=== PATIENT | female | born 1940 | race Caucasian/White ===

== ENCOUNTER 2016-04-22 20:11 | Inpatient (IN) | payer OTHER, BC ==
[~2016-04-22] VITALS: Ht 149.9 cm; Wt 52.9 kg
[~2016-04-22 20:11] MED LIST: ADVAIR 250/501 DISK IH; ALEVE220 MG PO; B-12 PO; BACTRIM,SEPT1 TABLET PO; BACTROBAN CREAM15 GM TP; CALCIUM 600 +1 EAC8 PO; CALCIUM PO; CYANOCOBALAM1000 MCG PO; Colace PO; Cortaid,Hytone 1% Cr TP; DAILY VITAMIN1 EAC8 PO; DuoNeb IH; FURO40I IV; FUROSEMIDE40 MG PO; GABAPENTIN400 MG PO; IBUPROFEN600 MG PO; K-Dur PO; Keppra PO; LEVETIRACETAM250 MG PO; Maalox, Mylanta PO; NIZORAL 2% CREA15 GM TP; NOVOLOG PE100 UNITS/ SC; Neurontin PO; Nitrostat,NitroQuick SL; POTASSIUM CHLO20 ME1 PO; PREDNISONE PO; PRINIVIL10 MG PO; Protonix PO; SPIRIVA1 INHALATI IH; SSD25GM TP; THEOPHYLLINE A200 M1 PO; TRICOR145 MG PO; Theo-Dur,Theocron PO; VITAMIN D10000 UNIT PO; VITAMIN D3; Zeasorb Antifungal T TP; oxyCODONE PO
[2016-04-22 21:13] LABS: BASOPHIL COUNT 0.1 K/uL (0-0.1); EOSINOPHIL (%) 5.4 % (0-5); EOSINOPHIL COUNT 0.3 K/uL (0-0.3); HEMATOCRIT 27.6 % (36.0-46.0); IMMATURE GRANULOCYTE (%) 0.4 % (0.0-0.7); IMMATURE GRANULOCYTE COUNT 0.2 K/uL; LYMPHOCYTE COUNT 1.1 K/uL (1.0-2.8); MCH 29.5 PG (29.0-34.0); MCHC 30.4 G/DL (30.0-36.0); MCV 96.8 FL (83-99); MONOCYTE (%) 10.4 % (3-12); MONOCYTE COUNT 0.5 K/uL (0-0.8); NEUTROPHIL (%) 60.4 % (45-76); RBC DIS.WIDTH-CV 13.3 % (11.8-14.6); RED BLOOD COUNT 2.85 M/uL (3.80-5.20)
[2016-04-22 21:17] LABS: MEAN PLAT.VOLUME 9.7 uM^3 (9.5-12.4); PLATELET COUNT 494 K/uL (156-360)
[2016-04-22 21:21] LABS: CHLORIDE 98 mEq/L (99-109); POTASSIUM 5.8 mEq/L (3.7-5.4)
[2016-04-22 21:24] LABS: GLUCOSE 121 mg/dL (70-99)
[2016-04-22 21:25] LABS: ANION GAP 9 MEQ/L (2-14)
[2016-04-22 21:26] LABS: TOTAL BILIRUBIN 0.2 mg/dL (0.0-1.0)
[2016-04-22 21:27] LABS: ALKALINE PHOSPHATASE 60 IU/L (3-129)
[2016-04-22 21:28] LABS: GFR ESTIMATE (CALCULATED) 14 mL/min/; SODIUM 137 mEq/L (136-147)
[2016-04-22 21:33] LABS: UREA NITROGEN (BUN) 39 mg/dL (9-23)
[2016-04-22 21:39] LABS: TROP-I INTERPRETATION NEGATIVE; TROPONIN-I 0.04 ng/mL (0.0-0.30)
[2016-04-23 00:49] LABS: ADD MIUA? YES; BILIRUBIN NEGATIVE; BLOOD MODERATE; COLOR YELLOW ((YELLOW)); GLUCOSE (STRIP) NEGATIVE; KETONES NEGATIVE; LEUKOCYTES NEGATIVE; NITRITE NEGATIVE; PH, URINE 6.5 (5-8); PROTEIN (STRIP) 30; SPECIFIC GRAVITY 1.019 (1.000-1.030); UROBILINOGEN 0.2 MG/DL (0.2-1.0)
[2016-04-23 01:02] LABS: BACTERIA 1+; CASTS NONE SEEN /LPF; EPITHELIAL CELLS 2+; MUCUS NONE SEEN; RED BLOOD CELLS 0-5 /HPF (0-5); UCUL ADDED? NO; WHITE BLOOD CELLS 0-5 /HPF (0-5)
[2016-04-23 01:03] LABS: CRYSTALS PRESENT
[2016-04-23 01:04] LABS: CALCIUM OXALATE CRYSTALS RARE
[2016-04-23] MEDS ORDERED: TRAMADOL HCL50 MG PO (02:43)
[2016-04-23] MEDS ORDERED: DUONEB 2.5-0.5 M3 ML AEROSOL (02:46)
[2016-04-23 04:38] VITALS: BP 115/52
[2016-04-23 07:47] LABS: HEMATOCRIT 25.4 % (36.0-46.0); MCH 29.5 PG (29.0-34.0); MCHC 30.7 G/DL (30.0-36.0); MCV 96.2 FL (83-99); PLATELET COUNT 441 K/uL (156-360); RBC DIS.WIDTH-CV 13.8 % (11.8-14.6); RBC DIS.WIDTH-SD 48.4 % (39-53); RED BLOOD COUNT 2.64 M/uL (3.80-5.20); WHITE BLOOD COUNT 4.9 K/uL (4.1-10.2)
[2016-04-23 08:12] LABS: ALKALINE PHOSPHATASE 56 IU/L (3-129); ANION GAP 7 MEQ/L (2-14); CHLORIDE 100 MEQ/L (99-109); GLUCOSE 91 mg/dL (70-99); POTASSIUM 5.8 MEQ/L (3.7-5.4); SAMPLE HEMOLYSIS CHECK 0; SAMPLE ICTERIC CHECK 0; SAMPLE LIPEMIA CHECK 0; SODIUM 137 MEQ/L (136-147); UREA NITROGEN (BUN) 34 mg/dL (9-23)
[2016-04-23 08:15] LABS: GFR ESTIMATE (CALCULATED) 20 mL/min/; TOTAL BILIRUBIN 0.3 MG/DL (0.0-1.0)
[2016-04-23 08:46] VITALS: BP 128/55
[2016-04-23 12:13] VITALS: BP 139/65
[2016-04-23 16:10] VITALS: BP 137/65
[2016-04-23 16:12] LABS: ANION GAP 9 MEQ/L (2-14); CHLORIDE 100 MEQ/L (99-109); POTASSIUM 5.9 MEQ/L (3.7-5.4); SAMPLE HEMOLYSIS CHECK 2; SAMPLE ICTERIC CHECK 0; SAMPLE LIPEMIA CHECK 0; SODIUM 136 MEQ/L (136-147)
[2016-04-23 16:17] LABS: GFR ESTIMATE (CALCULATED) 24 mL/min/; GLUCOSE 124 mg/dL (70-99); UREA NITROGEN (BUN) 31 mg/dL (9-23)
[2016-04-23 18:18] VITALS: BP 120/60
[2016-04-23 20:25] VITALS: BP 131/61
[2016-04-24] VITALS: BP 128/61
[2016-04-24 04:27] VITALS: BP 143/73
[2016-04-24 06:13] LABS: BASOPHIL COUNT 0.1 K/uL (0-0.1); EOSINOPHIL (%) 4.7 % (0-5); EOSINOPHIL COUNT 0.2 K/uL (0-0.3); HEMATOCRIT 26.5 % (36.0-46.0); IMMATURE GRANULOCYTE (%) 0.2 % (0.0-0.7); LYMPHOCYTE COUNT 0.9 K/uL (1.0-2.8); MCHC 30.6 G/DL (30.0-36.0); MCV 98.1 FL (83-99); MEAN PLAT.VOLUME 10.1 uM^3 (9.5-12.4); MONOCYTE (%) 10.6 % (3-12); MONOCYTE COUNT 0.5 K/uL (0-0.8); NEUTROPHIL (%) 61.5 % (45-76); NEUTROPHIL COUNT 2.6 K/uL (1.8-6.4); PLATELET COUNT 477 K/uL (156-360); RBC DIS.WIDTH-CV 13.9 % (11.8-14.6); RBC DIS.WIDTH-SD 49.6 % (39-53); WHITE BLOOD COUNT 4.3 K/uL (4.1-10.2)
[2016-04-24 06:42] LABS: ANION GAP 9 MEQ/L (2-14); CHLORIDE 101 MEQ/L (99-109); GFR ESTIMATE (CALCULATED) 29 mL/min/; IRON 34 MCG/DL (35-150); SAMPLE HEMOLYSIS CHECK 0; SAMPLE ICTERIC CHECK 0; SAMPLE LIPEMIA CHECK 0; SODIUM 140 MEQ/L (136-147); UREA NITROGEN (BUN) 23 mg/dL (9-23)
[2016-04-24 06:47] LABS: GLUCOSE 86 mg/dL (70-99)
[2016-04-24 07:17] LABS: URIC ACID 7.4 mg/dL (3.1-9.2)
[2016-04-24 07:23] VITALS: BP 132/68
[2016-04-24 15:23] VITALS: BP 138/63
[2016-04-24 23:24] VITALS: BP 144/75
[2016-04-25 07:46] VITALS: BP 170/82
[2016-04-25 09:29] LABS: HEMATOCRIT 27.7 % (36.0-46.0); MCH 29.6 PG (29.0-34.0); MCHC 30.7 G/DL (30.0-36.0); MCV 96.5 FL (83-99); MEAN PLAT.VOLUME 9.9 uM^3 (9.5-12.4); PLATELET COUNT 439 K/uL (156-360); RBC DIS.WIDTH-CV 13.8 % (11.8-14.6); RBC DIS.WIDTH-SD 48.1 % (39-53); RED BLOOD COUNT 2.87 M/uL (3.80-5.20); WHITE BLOOD COUNT 3.9 K/uL (4.1-10.2)
[2016-04-25 09:59] LABS: ANION GAP 12 MEQ/L (2-14); CHLORIDE 101 MEQ/L (99-109); GFR ESTIMATE (CALCULATED) 39 mL/min/; GLUCOSE 82 mg/dL (70-99); POTASSIUM 3.7 MEQ/L (3.7-5.4); SAMPLE HEMOLYSIS CHECK 0; SAMPLE ICTERIC CHECK 0; SAMPLE LIPEMIA CHECK 0; SODIUM 144 MEQ/L (136-147); UREA NITROGEN (BUN) 18 mg/dL (9-23)
[2016-04-25 11:45] VITALS: BP 120/60
[2016-04-25 15:35] VITALS: BP 127/60
[2016-04-26 00:01] VITALS: BP 148/68
[2016-04-26 06:23] LABS: ANION GAP 16 MEQ/L (2-14); CHLORIDE 99 MEQ/L (99-109); GFR ESTIMATE (CALCULATED) 42 mL/min/; GLUCOSE 89 mg/dL (70-99); SAMPLE HEMOLYSIS CHECK 0; SAMPLE ICTERIC CHECK 0; SAMPLE LIPEMIA CHECK 0; SODIUM 145 MEQ/L (136-147); UREA NITROGEN (BUN) 16 mg/dL (9-23)
[2016-04-26 08:06] VITALS: BP 131/63
[2016-04-26 16:05] VITALS: BP 154/70
[2016-04-27 08:09] VITALS: BP 136/62
[2016-04-27 08:15] LABS: ANION GAP 17 MEQ/L (2-14); CHLORIDE 101 MEQ/L (99-109); GFR ESTIMATE (CALCULATED) 46 mL/min/; GLUCOSE 93 mg/dL (70-99); SAMPLE HEMOLYSIS CHECK 0; SAMPLE ICTERIC CHECK 0; SAMPLE LIPEMIA CHECK 0; SODIUM 145 MEQ/L (136-147); UREA NITROGEN (BUN) 22 mg/dL (9-23)
[2016-04-27 08:18] LABS: POTASSIUM 3.8 MEQ/L (3.7-5.4)
[2016-04-27] MEDS ORDERED: ACIDOPHILUS1 EAC4 PO (13:24)
[2016-04-27] MEDS ORDERED: MILK OF MAGN PO (13:28)
[2016-04-27] MEDS ORDERED: DULCOLAX10 MG PR (13:30)
[2016-04-27] MEDS ORDERED: FLEET ENEMA-AD118 ML PR (13:31)
[2016-04-27] MEDS ORDERED: MOTRIN600 MG PO (13:32)
[2016-04-27 16:22] VITALS: BP 153/67
[2016-04-27 20:05] VITALS: BP 140/63
[2016-04-27 23:29] VITALS: BP 155/70
[2016-04-28 06:45] LABS: ANION GAP 6 MEQ/L (2-14); CHLORIDE 100 MEQ/L (99-109); GFR ESTIMATE (CALCULATED) 46 mL/min/; GLUCOSE 93 mg/dL (70-99); POTASSIUM 3.6 MEQ/L (3.7-5.4); SAMPLE HEMOLYSIS CHECK 0; SAMPLE ICTERIC CHECK 0; SAMPLE LIPEMIA CHECK 0; SODIUM 139 MEQ/L (136-147); UREA NITROGEN (BUN) 23 mg/dL (9-23)
[2016-04-28 08:20] VITALS: BP 154/67
[2016-04-28 11:01] LABS: MCH 29.2 PG (29.0-34.0); MCHC 30.3 G/DL (30.0-36.0); MCV 96.2 FL (83-99); MEAN PLAT.VOLUME 10.1 uM^3 (9.5-12.4); PLATELET COUNT 387 K/uL (156-360); RBC DIS.WIDTH-CV 14.6 % (11.8-14.6); RBC DIS.WIDTH-SD 50.1 % (39-53); RED BLOOD COUNT 3.12 M/uL (3.80-5.20); WHITE BLOOD COUNT 4.8 K/uL (4.1-10.2)
[2016-04-28 11:35] LABS: ANION GAP 9 MEQ/L (2-14); CHLORIDE 102 MEQ/L (99-109); POTASSIUM 3.7 MEQ/L (3.7-5.4); SAMPLE HEMOLYSIS CHECK 0; SAMPLE ICTERIC CHECK 0; SAMPLE LIPEMIA CHECK 0; SODIUM 142 MEQ/L (136-147)
[2016-04-28 11:40] LABS: GFR ESTIMATE (CALCULATED) 46 mL/min/; GLUCOSE 94 mg/dL (70-99); UREA NITROGEN (BUN) 23 mg/dL (9-23)
[2016-04-28 17:17] VITALS: BP 142/60
[2016-04-29] VITALS: BP 140/65
[2016-04-29 15:21] VITALS: BP 158/72
[2016-04-29 23:15] VITALS: BP 156/70
[2016-04-30 06:44] LABS: ANION GAP 12 MEQ/L (2-14); CHLORIDE 100 MEQ/L (99-109); GFR ESTIMATE (CALCULATED) 46 mL/min/; GLUCOSE 91 mg/dL (70-99); POTASSIUM 3.2 MEQ/L (3.7-5.4); SAMPLE HEMOLYSIS CHECK 0; SAMPLE ICTERIC CHECK 0; SAMPLE LIPEMIA CHECK 0; SODIUM 142 MEQ/L (136-147); UREA NITROGEN (BUN) 23 mg/dL (9-23)
[2016-04-30 09:33] VITALS: BP 146/83
[2016-04-30 15:54] VITALS: BP 158/65
[2016-05-01 00:39] VITALS: BP 122/65
[2016-05-01 06:01] LABS: HEMATOCRIT 32.4 % (36.0-46.0); MCH 29.9 PG (29.0-34.0); MCHC 31.2 G/DL (30.0-36.0); MCV 95.9 FL (83-99); PLATELET COUNT 339 K/uL (156-360); RBC DIS.WIDTH-SD 51.8 % (39-53); RED BLOOD COUNT 3.38 M/uL (3.80-5.20)
[2016-05-01 06:37] LABS: ANION GAP 9 MEQ/L (2-14); CHLORIDE 99 MEQ/L (99-109); GFR ESTIMATE (CALCULATED) 51 mL/min/; GLUCOSE 89 mg/dL (70-99); POTASSIUM 3.8 MEQ/L (3.7-5.4); SAMPLE HEMOLYSIS CHECK 1; SAMPLE ICTERIC CHECK 0; SAMPLE LIPEMIA CHECK 0; SODIUM 138 MEQ/L (136-147); UREA NITROGEN (BUN) 22 mg/dL (9-23)
[2016-05-01 08:33] VITALS: BP 145/66
[2016-05-01 16:52] VITALS: BP 154/66
[2016-05-01 23:43] VITALS: BP 110/58
[2016-05-02 06:56] VITALS: BP 140/61
[2016-05-02 11:34] VITALS: BP 138/66
[2016-05-02 12:03] VITALS: BP 138/74
[2016-05-02] MEDS ORDERED: DOXYCYCLINE HY100 M3 PO (13:27)
== END 2016-05-02 16:10 | DRG 682 ==
LOC: EME → EDBD 20:11 → EME 20:11 → EDOF 04-23 02:32 → 5WEST 04-23 04:24 → 3EAST 04-23 10:12 → 5WEST 04-23 10:12 → 3EAST 04-23 17:34
PROVIDERS: Emergency Medicine; Internal Medicine; Internal Medicine Nephrology; Physician Assistant
DX: N17.9 Acute kidney failure, unspecified (principal); J96.21 Acute and chronic respiratory failure with hypoxia; G93.40 Encephalopathy, unspecified; L89.893 Pressure ulcer of other site, stage 3; J96.10 Chronic respiratory failure, unspecified whether with hypoxia or hypercapnia; L03.115 Cellulitis of right lower limb; N18.3 Chronic kidney disease, stage 3 (moderate); Z99.81 Dependence on supplemental oxygen; J44.9 Chronic obstructive pulmonary disease, unspecified; E87.5 Hyperkalemia; L98.499 Non-pressure chronic ulcer of skin of other sites with unspecified severity; D64.9 Anemia, unspecified; Z86.74 Personal history of sudden cardiac arrest; E78.5 Hyperlipidemia, unspecified; L40.9 Psoriasis, unspecified; G40.909 Epilepsy, unspecified, not intractable, without status epilepticus; E66.9 Obesity, unspecified; I87.2 Venous insufficiency (chronic) (peripheral); K43.9 Ventral hernia without obstruction or gangrene; N26.1 Atrophy of kidney (terminal); B95.61 Methicillin susceptible Staphylococcus aureus infection as the cause of diseases classified elsewhere; I25.2 Old myocardial infarction; Z68.34 Body mass index [BMI] 34.0-34.9, adult
CPT/HCPCS: 70450; 71010; 76770; 80048; 80048 91; 80053; 80069; 81003; 82272; 82570; 82607; 83540; 83605; 83735; 84156; 84466; 84484; 84550; 85025; 85027; 87040; 87070; 87075; 87205; 93926; 94640; 94640 76; 94760; 94799; 99202; 99281; 99284; J1644; J1756; J2405; J7030; J7050

== ENCOUNTER 2016-08-15 07:38 | Inpatient (IN) | payer OTHER, BC ==
[~2016-08-15] VITALS: Ht 162.6 cm; Wt 104.7 kg
[~2016-08-15 07:38] MED LIST changes: +ACIDOPHILUS1 EAC4 PO; +DOXYCYCLINE HY100 M3 PO; +DULCOLAX10 MG PR; +DUONEB 2.5-0.5 M3 ML AEROSOL; +FLEET ENEMA-AD118 ML PR; +MILK OF MAGN PO; +MOTRIN600 MG PO; +TRAMADOL HCL50 MG PO
[2016-08-15 08:20] LABS: EOSINOPHIL (%) 0 % (0-5); HEMATOCRIT 35.8 % (36.0-46.0); IMMATURE GRANULOCYTE (%) 0.5 % (0.0-0.7); IMMATURE GRANULOCYTE COUNT 0.1 K/uL; INSTRUMENT ABS NEUTROPHIL CT 13.3 K/uL; MCH 30.9 PG (29.0-34.0); MCV 99.7 FL (83-99); MEAN PLAT.VOLUME 11.4 uM^3 (9.5-12.4); MONOCYTE (%) 5.3 % (3-12); MONOCYTE COUNT 0.8 K/uL (0-0.8); NEUTROPHIL (%) 87.6 % (45-76); NEUTROPHIL COUNT 13.3 K/uL (1.8-6.4); PLATELET COUNT 428 K/uL (156-360); RBC DIS.WIDTH-CV 12.2 % (11.8-14.6); RED BLOOD COUNT 3.59 M/uL (3.80-5.20); WHITE BLOOD COUNT 15.2 K/uL (4.1-10.2)
[2016-08-15 08:28] LABS: CHLORIDE 100 mEq/L (99-109); POTASSIUM 3.9 mEq/L (3.7-5.4); SODIUM 140 mEq/L (136-147)
[2016-08-15 08:30] LABS: GLUCOSE 197 mg/dL (70-99)
[2016-08-15 08:31] LABS: ANION GAP 21 MEQ/L (2-14)
[2016-08-15 08:32] LABS: TOTAL BILIRUBIN 0.9 mg/dL (0.0-1.0)
[2016-08-15 08:33] LABS: ALKALINE PHOSPHATASE 92 IU/L (3-129)
[2016-08-15 08:34] LABS: GFR ESTIMATE (CALCULATED) 17 mL/min/
[2016-08-15 08:35] LABS: UREA NITROGEN (BUN) 53 mg/dL (9-23)
[2016-08-15] MEDS ORDERED: THEOPHYLLINE400 MG PO ×2 (09:33→11:20)
[2016-08-15] MEDS ORDERED: DAILY VALUE1 EACH PO (09:34)
[2016-08-15] MEDS ORDERED: B-121000 MC2 PO (09:34)
[2016-08-15] MEDS ORDERED: CALCIUM 500 +1 EAC4 PO (09:35)
[2016-08-15] MEDS ORDERED: KENALOG,ARISTOC15 G2 TP (09:36)
[2016-08-15] MEDS ORDERED: ERGOCALCIF50000 UNIT PO (09:36)
[2016-08-15] MEDS ORDERED: VITAMIN B12 100MCG PO (09:53)
[2016-08-15 09:55] LABS: BASE EXCESS -12.9 mEq/L (-3 to +3); BICARBONATE 18.2 mEq/L (22-26); CARBOXY HGB 2.1 % (0-5); PO2 71 mm Hg (80-100)
[2016-08-15 09:56] LABS: COMMENTS - BLOOD GASES +C; DEVICE NC; O2 FLOW 3 L/MIN; PCO2 72 mm Hg (35-45); SITE LR +A; TOTAL RESP RATE 28 resp/min; pH 7.01 (7.35-7.45)
[2016-08-15] MEDS ORDERED: THEO-24400 MG PO (11:17)
[2016-08-15 12:34] LABS: BASE EXCESS -13.3 mEq/L (-3 to +3); BICARBONATE 14.6 mEq/L (22-26); CARBOXY HGB 2.3 % (0-5); METHEMOGLOBIN 1.4 % (0-1.5); PCO2 43 mm Hg (35-45); PO2 156 mm Hg (80-100); pH 7.14 (7.35-7.45)
[2016-08-15 13:53] LABS: BASE EXCESS -10.2 mEq/L (-3 to +3); BICARBONATE 16.3 mEq/L (22-26); CARBOXY HGB 2.8 % (0-5); METHEMOGLOBIN 1.5 % (0-1.5); PCO2 38 mm Hg (35-45); PO2 101 mm Hg (80-100); pH 7.24 (7.35-7.45)
[2016-08-15 15:03] LABS: ANION GAP 12 MEQ/L (2-14); CHLORIDE 113 MEQ/L (99-109); POTASSIUM 3.6 MEQ/L (3.7-5.4); SAMPLE HEMOLYSIS CHECK 0; SAMPLE ICTERIC CHECK 0; SAMPLE LIPEMIA CHECK 0; SODIUM 143 MEQ/L (136-147)
[2016-08-15 15:13] LABS: ALKALINE PHOSPHATASE 43 IU/L (3-129); GFR ESTIMATE (CALCULATED) 31 mL/min/; UREA NITROGEN (BUN) 36 mg/dL (9-23)
[2016-08-15 15:14] LABS: GLUCOSE 102 mg/dL (70-99)
[2016-08-15 15:21] LABS: ABS NEUTROPHIL COUNT 3.2; ANISOCYTOSIS 1+; ATYPICAL LYMPHOCYTE 0.9 %; BAND NEUTROPHILS 43.2 % (0-8.0); BASOPHILS 1.8 %; EOSINOPHIL ABS CT 0; HEMATOCRIT 32.1 % (36.0-46.0); INSTRUMENT ABS NEUTROPHIL CT 3.1 K/uL; LYMPHOCYTES 7.2 % (15.0-45.0); MCH 30.3 PG (29.0-34.0); MCHC 31.8 G/DL (30.0-36.0); MEAN PLAT.VOLUME 11.3 uM^3 (9.5-12.4); MICROCYTOSIS 1+; NUCLEATED RBC'S 0.9; PLAT.SUFFICIENCY ADEQUATE; POIKILOCYTOSIS 1+; RBC DIS.WIDTH-CV 14.2 % (11.8-14.6); RBC DIS.WIDTH-SD 49.4 % (39-53); RED BLOOD COUNT 3.37 M/uL (3.80-5.20); SEG.NEUTROPHILS 44.2 % (46.0-76.0); SMUDGE CELLS 11.7
[2016-08-15 15:25] LABS: MCV 95.3 FL (83-99); PLATELET COUNT 193 K/uL (156-360); WHITE BLOOD COUNT 3.7 K/uL (4.1-10.2)
[2016-08-15 16:30] LABS: BASE EXCESS -11.1 mEq/L (-3 to +3); BICARBONATE 16.8 mEq/L (22-26); CARBOXY HGB 2.3 % (0-5); METHEMOGLOBIN 1.3 % (0-1.5)
[2016-08-15 16:31] LABS: PCO2 45 mm Hg (35-45); PO2 233 mm Hg (80-100); pH 7.18 (7.35-7.45)
[2016-08-15 18:00] VITALS: BP 95/46
[2016-08-15 18:28] LABS: HEMATOCRIT 39.2 % (36.0-46.0); MCH 30.9 PG (29.0-34.0); MCHC 31.9 G/DL (30.0-36.0); MCV 96.8 FL (83-99); MEAN PLAT.VOLUME 11.9 uM^3 (9.5-12.4); PLATELET COUNT 195 K/uL (156-360); RBC DIS.WIDTH-CV 14.7 % (11.8-14.6); WHITE BLOOD COUNT 3.8 K/uL (4.1-10.2)
[2016-08-15 18:29] LABS: RED BLOOD COUNT 4.05 M/uL (3.80-5.20)
[2016-08-15 18:44] LABS: TROP-I INTERPRETATION NEGATIVE; TROPONIN-I 0.12 ng/mL (0.0-0.30)
[2016-08-15 18:59] LABS: METH RESISTANT S AUREUS PCR NEGATIVE (NEGATIVE)
[2016-08-15 19:01] LABS: ANION GAP 14 MEQ/L (2-14); CHLORIDE 112 MEQ/L (99-109); GFR ESTIMATE (CALCULATED) 29 mL/min/; GLUCOSE 110 mg/dL (70-99); POTASSIUM 3.7 MEQ/L (3.7-5.4); SAMPLE HEMOLYSIS CHECK 0; SAMPLE ICTERIC CHECK 0; SAMPLE LIPEMIA CHECK 0; SODIUM 140 MEQ/L (136-147); UREA NITROGEN (BUN) 36 mg/dL (9-23)
[2016-08-15 19:08] LABS: PROBE CHECK PASS; SPECIMEN PROCESSING CONTROL PASS
[2016-08-15 20:51] LABS: BASE EXCESS -6.9 mEq/L (-3 to +3); BICARBONATE 18.5 mEq/L (22-26); CARBOXY HGB 3.1 % (0-5); COMMENTS - BLOOD GASES C+; DEVICE 840 VENT; FI02 40 %; MECHANICAL RATE 18 resp/min; METHEMOGLOBIN 1.5 % (0-1.5); MODE AC; PCO2 36 mm Hg (35-45); PO2 69 mm Hg (80-100); SITE ALINE; TOTAL RESP RATE 18 resp/min; pH 7.32 (7.35-7.45)
[2016-08-15 20:52] LABS: PEEP 5 CM/H20; TIDAL VOLUME 500 ML
[2016-08-15 21:00] VITALS: BP 103/68
[2016-08-15 22:00] VITALS: BP 80/53
[2016-08-15 23:00] VITALS: BP 69/52
[2016-08-16] VITALS (16 sets, daily range): BP systolic 82–130; BP diastolic 41–68
[2016-08-16 00:51] LABS: SODIUM 142 mEq/L (136-147)
[2016-08-16 00:53] LABS: GLUCOSE 119 mg/dL (70-99)
[2016-08-16 00:55] LABS: ANION GAP 12 MEQ/L (2-14)
[2016-08-16 00:57] LABS: GFR ESTIMATE (CALCULATED) 31 mL/min/
[2016-08-16 00:58] LABS: UREA NITROGEN (BUN) 37 mg/dL (9-23)
[2016-08-16 00:59] LABS: INTER. NORMALIZED RATIO 1.9; PROTHROMBIN TIME 19.6 (9.2-11.2); PTT 44.1 (25-32)
[2016-08-16 01:03] LABS: CHLORIDE 118 mEq/L (99-109); TOTAL BILIRUBIN 2.7 mg/dL (0.0-1.0)
[2016-08-16 01:04] LABS: ALKALINE PHOSPHATASE 32 IU/L (3-129)
[2016-08-16 01:35] LABS: ADD MIUA? YES; BILIRUBIN NEGATIVE; BLOOD MODERATE; COLOR YELLOW ((YELLOW)); GLUCOSE (STRIP) NEGATIVE; KETONES NEGATIVE; LEUKOCYTES NEGATIVE; NITRITE NEGATIVE; PROTEIN (STRIP) NEGATIVE; SPECIFIC GRAVITY 1.008 (1.000-1.030); UROBILINOGEN 0.2 MG/DL (0.2-1.0)
[2016-08-16 01:40] LABS: BACTERIA RARE /HPF; EPITHELIAL CELLS RARE /HPF; HYALINE CASTS 15-20 /LPF; MUCUS TRACE /LPF; RED BLOOD CELLS 20-30 /HPF (0-5); UCUL ADDED? NO; WHITE BLOOD CELLS 0-5 /HPF (0-5)
[2016-08-16 01:58] LABS: ABS NEUTROPHIL COUNT 2.5; ANISOCYTOSIS 1+; BASOPHILS 1.8 %; BURR CELLS 1+; EOSINOPHIL ABS CT 0; HEMATOCRIT 34.7 % (36.0-46.0); INSTRUMENT ABS NEUTROPHIL CT 2.3 K/uL; LYMPHOCYTES 13.9 % (15.0-45.0); MACROCYTES 1+; MCH 30.4 PG (29.0-34.0); MCHC 33.4 G/DL (30.0-36.0); MEAN PLAT.VOLUME 12.4 uM^3 (9.5-12.4); NRBC (%) 0.6 /100 WBC (0-0); NUCLEATED RBC'S 0.9; OVALOCYTES 1+; PLAT.SUFFICIENCY ADEQUATE; PLATELET COUNT 203 K/uL (156-360); POIKILOCYTOSIS 1+; RBC DIS.WIDTH-CV 15.6 % (11.8-14.6); RBC DIS.WIDTH-SD 51.7 % (39-53); RED BLOOD COUNT 3.82 M/uL (3.80-5.20); SEG.NEUTROPHILS 59.3 % (46.0-76.0); WHITE BLOOD COUNT 3.4 K/uL (4.1-10.2)
[2016-08-16 01:59] LABS: MCV 90.8 FL (83-99)
[2016-08-16 06:44] LABS: HEMATOCRIT 29.5 % (36.0-46.0); MCH 30.6 PG (29.0-34.0); MCHC 32.5 G/DL (30.0-36.0); MCV 93.9 FL (83-99); NRBC (%) 0.4 /100 WBC (0-0); PLATELET COUNT 169 K/uL (156-360); RBC DIS.WIDTH-CV 16.7 % (11.8-14.6); RBC DIS.WIDTH-SD 57.7 % (39-53); RED BLOOD COUNT 3.14 M/uL (3.80-5.20)
[2016-08-16 06:55] LABS: TROP-I INTERPRETATION NEGATIVE; TROPONIN-I 0.13 ng/mL (0.0-0.30)
[2016-08-16 07:16] LABS: ANION GAP 15 MEQ/L (2-14); CHLORIDE 116 MEQ/L (99-109); GFR ESTIMATE (CALCULATED) 26 mL/min/; POTASSIUM 4.6 MEQ/L (3.7-5.4); SAMPLE HEMOLYSIS CHECK 0; SAMPLE ICTERIC CHECK 0; SAMPLE LIPEMIA CHECK 0; SODIUM 144 MEQ/L (136-147); UREA NITROGEN (BUN) 34 mg/dL (9-23); WHITE BLOOD COUNT 5.2 K/uL (4.1-10.2)
[2016-08-16 07:17] LABS: GLUCOSE 69 mg/dL (70-99)
[2016-08-16 11:59] LABS: ALKALINE PHOSPHATASE 22 IU/L (3-129); ANION GAP 18 MEQ/L (2-14); CHLORIDE 114 MEQ/L (99-109); GFR ESTIMATE (CALCULATED) 24 mL/min/; GLUCOSE 68 mg/dL (70-99); SAMPLE HEMOLYSIS CHECK 1; SAMPLE ICTERIC CHECK 0; SAMPLE LIPEMIA CHECK 0; SODIUM 142 MEQ/L (136-147); TOTAL BILIRUBIN 1.8 MG/DL (0.0-1.0); UREA NITROGEN (BUN) 36 mg/dL (9-23)
[2016-08-16 15:06] LABS: POINT-OF-CARE METER ID UU14162636
[2016-08-16 17:52] LABS: POINT-OF-CARE METER ID UU14162636
[2016-08-16 18:51] LABS: INTER. NORMALIZED RATIO 3.7; PROTHROMBIN TIME 38.8 (9.2-11.2); PTT 85.8 (25-32)
[2016-08-16 19:01] LABS: ALKALINE PHOSPHATASE 29 IU/L (3-129); ANION GAP 20 MEQ/L (2-14); CHLORIDE 112 MEQ/L (99-109); DIRECT BILIRUBIN 0.9 mg/dL (0.0-0.3); GFR ESTIMATE (CALCULATED) 20 mL/min/; SAMPLE HEMOLYSIS CHECK 1; SAMPLE ICTERIC CHECK 0; SAMPLE LIPEMIA CHECK 0; SODIUM 144 MEQ/L (136-147); TOTAL BILIRUBIN 1.7 MG/DL (0.0-1.0); UREA NITROGEN (BUN) 36 mg/dL (9-23)
[2016-08-16 19:04] LABS: GLUCOSE 168 mg/dL (70-99); POTASSIUM 4.5 MEQ/L (3.7-5.4)
[2016-08-16 20:49] LABS: ABS NEUTROPHIL COUNT 6.8; EOSINOPHIL ABS CT 0; HEMATOCRIT 24.9 % (36.0-46.0); HEMATOLOGY COMMENT 1 SN; INSTRUMENT ABS NEUTROPHIL CT 8.1 K/uL; LYMPHOCYTES 5.5 % (15.0-45.0); MCHC 32.5 G/DL (30.0-36.0); MCV 95.4 FL (83-99); METAMYELOCYTES 15.5 %; MYELOCYTES 0.9 %; NRBC (%) 0.7 /100 WBC (0-0); NUCLEATED RBC'S 0.9; PLATELET CLUMPS PRESENT - PLATELET COUNTS APPEARS DECREASED; POIKILOCYTOSIS 3+; RBC DIS.WIDTH-SD 59.4 % (39-53); RED BLOOD COUNT 2.61 M/uL (3.80-5.20)
[2016-08-16 20:50] LABS: BAND NEUTROPHILS 43.6 % (0-8.0); SEG.NEUTROPHILS 23.6 % (46.0-76.0); WHITE BLOOD COUNT 10.1 K/uL (4.1-10.2)
[2016-08-17] VITALS (14 sets, daily range): BP systolic 0–165; BP diastolic 0–74
[2016-08-17 05:11] LABS: POINT-OF-CARE METER ID UU14162636
[2016-08-17 05:57] LABS: BASE EXCESS -10.7 mEq/L (-3 to +3); BICARBONATE 16.4 mEq/L (22-26); CARBOXY HGB 2.1 % (0-5); COMMENTS - BLOOD GASES C+; DEVICE 840 VENT; FI02 40 %; MECHANICAL RATE 18 resp/min; METHEMOGLOBIN 1.9 % (0-1.5); MODE AC; PCO2 41 mm Hg (35-45); PEEP 7.5 CM/H20; PO2 51 mm Hg (80-100); SITE ALINE; TIDAL VOLUME 500 ML; TOTAL RESP RATE 18 resp/min; pH 7.21 (7.35-7.45)
[2016-08-17 06:46] LABS: TROP-I INTERPRETATION NEGATIVE; TROPONIN-I 0.26 ng/mL (0.0-0.30)
[2016-08-17 06:53] LABS: ANION GAP 17 MEQ/L (2-14); CHLORIDE 111 MEQ/L (99-109); GFR ESTIMATE (CALCULATED) 18 mL/min/; GLUCOSE 213 mg/dL (70-99); POTASSIUM 3.9 MEQ/L (3.7-5.4); SAMPLE HEMOLYSIS CHECK 0; SAMPLE ICTERIC CHECK 0; SAMPLE LIPEMIA CHECK 0; SODIUM 143 MEQ/L (136-147); UREA NITROGEN (BUN) 37 mg/dL (9-23)
[2016-08-17 06:56] LABS: HEMATOCRIT 23.7 % (36.0-46.0); MCH 30.8 PG (29.0-34.0); MCHC 32.5 G/DL (30.0-36.0); MCV 94.8 FL (83-99); MEAN PLAT.VOLUME 13.6 uM^3 (9.5-12.4); NRBC (%) 0.8 /100 WBC (0-0); PLATELET COUNT 126 K/uL (156-360); RBC DIS.WIDTH-CV 16.4 % (11.8-14.6); WHITE BLOOD COUNT 9.7 K/uL (4.1-10.2)
[2016-08-17 07:00] LABS: MAGNESIUM 1.4 mg/dl (1.3-2.7)
[2016-08-17 08:11] LABS: ABS NEUTROPHIL COUNT 8.5; ANISOCYTOSIS 2+; BURR CELLS 2+; EOSINOPHIL ABS CT 0; HYPOCHROMASIA 1+; INSTRUMENT ABS NEUTROPHIL CT 8.8 K/uL; OVALOCYTES 1+; PLAT.SUFFICIENCY DECREASED; POIKILOCYTOSIS 2+
[2016-08-17 16:19] LABS: TROP-I INTERPRETATION NEGATIVE; TROPONIN-I 0.22 ng/mL (0.0-0.30)
[2016-08-17 18:10] LABS: POINT-OF-CARE METER ID UU13113803
[2016-08-17 20:12] LABS: ABS NEUTROPHIL COUNT 8.9; ANISOCYTOSIS 2+; BAND NEUTROPHILS 56.2 % (0-8.0); BURR CELLS 1+; EOSINOPHIL ABS CT 0; HEMATOCRIT 32.7 % (36.0-46.0); HYPOCHROMASIA 1+; INSTRUMENT ABS NEUTROPHIL CT 8.7 K/uL; LYMPHOCYTES 1.8 % (15.0-45.0); MACROCYTES 1+; MEAN PLAT.VOLUME 13.4 uM^3 (9.5-12.4); METAMYELOCYTES 0.9 %; MICROCYTOSIS 1+; NRBC (%) 0.7 /100 WBC (0-0); PLAT.SUFFICIENCY DECREASED; PLATELET COUNT 93 K/uL (156-360); POIKILOCYTOSIS 2+; RBC DIS.WIDTH-CV 16.3 % (11.8-14.6); RBC DIS.WIDTH-SD 54.2 % (39-53); SEG.NEUTROPHILS 35.7 % (46.0-76.0); SPHEROCYTES 1+; WHITE BLOOD COUNT 9.7 K/uL (4.1-10.2)
[2016-08-17 20:14] LABS: ANION GAP 17 MEQ/L (2-14); CHLORIDE 110 MEQ/L (99-109); GFR ESTIMATE (CALCULATED) 17 mL/min/; GLUCOSE 223 mg/dL (70-99); MCV 90.8 FL (83-99); POTASSIUM 3.7 MEQ/L (3.7-5.4); SAMPLE HEMOLYSIS CHECK 0; SAMPLE ICTERIC CHECK 0; SAMPLE LIPEMIA CHECK 0; SODIUM 144 MEQ/L (136-147); UREA NITROGEN (BUN) 37 mg/dL (9-23)
[2016-08-17 20:28] LABS: ALKALINE PHOSPHATASE 67 IU/L (3-129); TOTAL BILIRUBIN 2.8 MG/DL (0.0-1.0)
[2016-08-18 01:00] LABS: TROP-I INTERPRETATION NEGATIVE; TROPONIN-I 0.21 ng/mL (0.0-0.30)
[2016-08-18 01:37] LABS: POINT-OF-CARE METER ID UU13113731
[2016-08-18 05:39] LABS: BASE EXCESS -7.4 mEq/L (-3 to +3); BICARBONATE 19.3 mEq/L (22-26); COMMENTS - BLOOD GASES C+; DEVICE VENTILATOR; FI02 60 %; MECHANICAL RATE 18 resp/min; METHEMOGLOBIN 1.7 % (0-1.5); MODE AC; PCO2 43 mm Hg (35-45); PEEP 9 CM/H20; PO2 57 mm Hg (80-100); SITE LR ALINE; TIDAL VOLUME 500 ML; TOTAL RESP RATE 18 resp/min
[2016-08-18 05:40] LABS: pH 7.26 (7.35-7.45)
[2016-08-18 07:33] LABS: HEMATOCRIT 33.3 % (36.0-46.0); MCH 29.5 PG (29.0-34.0); MCHC 32.7 G/DL (30.0-36.0); MCV 90.2 FL (83-99); MEAN PLAT.VOLUME 13.7 uM^3 (9.5-12.4); NRBC (%) 0.9 /100 WBC (0-0); PLATELET COUNT 91 K/uL (156-360); RBC DIS.WIDTH-CV 16.6 % (11.8-14.6); RBC DIS.WIDTH-SD 54.7 % (39-53); RED BLOOD COUNT 3.69 M/uL (3.80-5.20); WHITE BLOOD COUNT 8.9 K/uL (4.1-10.2)
[2016-08-18 07:50] LABS: CHLORIDE 110 mEq/L (99-109); POTASSIUM 3.9 mEq/L (3.7-5.4); SODIUM 143 mEq/L (136-147)
[2016-08-18 07:51] LABS: MAGNESIUM 1.4 mg/dL (1.3-2.7)
[2016-08-18 07:52] LABS: GLUCOSE 204 mg/dL (70-99)
[2016-08-18 07:54] LABS: ANION GAP 18 MEQ/L (2-14)
[2016-08-18 07:56] LABS: GFR ESTIMATE (CALCULATED) 16 mL/min/
[2016-08-18 07:57] LABS: UREA NITROGEN (BUN) 40 mg/dL (9-23)
[2016-08-18 09:26] LABS: POINT-OF-CARE METER ID UU14162636
[2016-08-18 09:31] LABS: ABS NEUTROPHIL COUNT 6.5; ANISOCYTOSIS 2+; BURR CELLS 2+; EOSINOPHIL ABS CT 0; INSTRUMENT ABS NEUTROPHIL CT 7.6 K/uL; MICROCYTOSIS 1+; PLAT.SUFFICIENCY DECREASED
[2016-08-18 12:24] LABS: POINT-OF-CARE METER ID UU14162636
[2016-08-18 13:33] LABS: PREALBUMIN < 3.0 mg/dL (10-40)
== END 2016-08-18 15:13 | DRG 853 ==
LOC: EME → EDBD 07:38 → EME 11:40 → SDC 11:43 → 4WEST 17:07
PROVIDERS: Anesthesiology; Emergency Medicine; Internal Medicine Pulmonary Disease; Thoracic Surgery (Cardiothoracic Vascular Surgery)
DX: A41.9 Sepsis, unspecified organism (principal); K63.1 Perforation of intestine (nontraumatic); N17.0 Acute kidney failure with tubular necrosis; R65.21 Severe sepsis with septic shock; E43 Unspecified severe protein-calorie malnutrition; E87.4 Mixed disorder of acid-base balance; J80 Acute respiratory distress syndrome; E87.2 Acidosis; K55.9 Vascular disorder of intestine, unspecified; I95.9 Hypotension, unspecified; N18.3 Chronic kidney disease, stage 3 (moderate); R18.8 Other ascites; K42.0 Umbilical hernia with obstruction, without gangrene; K43.6 Other and unspecified ventral hernia with obstruction, without gangrene; N17.9 Acute kidney failure, unspecified; J90 Pleural effusion, not elsewhere classified; I25.2 Old myocardial infarction; I48.91 Unspecified atrial fibrillation; J44.9 Chronic obstructive pulmonary disease, unspecified; E78.5 Hyperlipidemia, unspecified; E11.8 Type 2 diabetes mellitus with unspecified complications; I12.9 Hypertensive chronic kidney disease with stage 1 through stage 4 chronic kidney disease, or unspecified chronic kidney disease; E78.00 Pure hypercholesterolemia, unspecified; G40.909 Epilepsy, unspecified, not intractable, without status epilepticus; I45.10 Unspecified right bundle-branch block; R94.31 Abnormal electrocardiogram [ECG] [EKG]; R60.9 Edema, unspecified; E66.01 Morbid (severe) obesity due to excess calories; R00.0 Tachycardia, unspecified; K72.90 Hepatic failure, unspecified without coma; Z68.39 Body mass index [BMI] 39.0-39.9, adult; Z86.74 Personal history of sudden cardiac arrest; Z87.891 Personal history of nicotine dependence; Z91.09 Other allergy status, other than to drugs and biological substances; Z99.81 Dependence on supplemental oxygen; Z88.0 Allergy status to penicillin
CPT/HCPCS: 36600; 71010; 74176; 80048; 80048 91; 80053; 81003; 82248; 82803; 82948; 83605; 83735; 84100; 84134; 84484; 85025; 85025 91; 85027; 85610; 85730; 86900; 86901; 86920; 87040; 87070; 87205; 87641; 88305; 88307; 93005; 94002; 94003; 94640; 94640 76; 94760; 99202; 99281; 99285; C1788; C1894; C9113; J0171; J0330; J0692; J1100; J1160; J1644; J1815; J2250; J2270; J2370; J2405; J2543; J2710; J3010; J3370; J3475; J7030; J7050; J7120; P9016; P9045; P9047; S0030